=== PATIENT | male | born 1955 | race Caucasian/White ===

== ENCOUNTER 2017-03-09 17:53 | Emergency (ER) | payer BC ==
--- NOTE | 2017-03-09 18:31 | UC ---
Abdominal Pain Male HPI - HPI Summary HPI Summary: Has had off and on low left quadrant pain for the past several years, but steadier for the past 2 weeks. Bowel passage is normal, no constipation or diarrhea. Mild increase in urine frequency x months, but no dysuria and no persistent nocturia. Normal appetite. Sometimes aware of swelling in the LLQ that comes and goes. Last colonoscopy was > 10 years ago. Brother has diverticular disease. 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 - History of Current Complaint Chief Complaint: UCAbdominalPain Stated Complaint: LLQ PAIN Time Seen by Provider: 03/09/17 18:16 Hx Obtained From: Patient Onset/Duration: Gradual Onset Timing: Intermittent Episodes Lasting: - hours to days. Severity Initially: Mild Severity Currently: Moderate Pain Intensity: 4 Pain Scale Used: 0-10 Numeric Location: Other - left inguinal area Character: Aching, Sharp Aggravating Factor(s): Movement, Other - sitting. Alleviating Factor(s): Rest, Position Associated Signs And Symptoms: Positive: Negative - Risk Factors Testicular Torsion: Negative Cardiac Risk Factors: Hypertension, Elevated Lipids - Allergies/Home Medications Allergies/Adverse Reactions: Allergies Allergy/AdvReac Type Severity Reaction Status Date / Time No Known Allergies Allergy Verified 03/09/17 18:02 Home Medications: Home Medications Blood Pressure Med 1 tab DAILY 03/09/17 [History Confirmed 03/09/17] Cholesterol Med 1 tab DAILY 03/09/17 [History Confirmed 03/09/17] PMH/Surg Hx/FS Hx/Imm Hx Cardiovascular History: Hypertension - Surgical History Surgical History: None - Family History Known Family History: Positive: Cardiac Disease - father, Other - mother age 62, suspected aneurysm. - Social History Alcohol Use: Occasionally Substance Use Type: None Smoking Status (MU): Never Smoked Tobacco - Immunization History Most Recent Influenza Vaccination: never get them Review of Systems Constitutional: Negative Skin: Negative Eyes: Negative ENT: Negative Respiratory: Other - no hx of chronic cough. Cardiovascular: Other - blood pressure controlled according to PMD whom he saw recently. Good cholesterol control Gastrointestinal: Abdominal Pain - LLQ Genitourinary: Negative Motor: Negative Neurovascular: Negative Musculoskeletal: Negative Neurological: Negative Psychological: Negative Is Patient Immunocompromised?: No All Other Systems Reviewed And Are Negative: No Physical Exam Triage Information Reviewed: Yes Appearance: Well-Appearing, Pain Distress - mild Vital Signs: Initial Vital Signs Temp 98.2 F 03/09/17 18:03 Pulse 74 03/09/17 18:03 Resp 16 03/09/17 18:03 BP 158/81 03/09/17 18:03 Pulse Ox 98 03/09/17 18:03 Vital Signs Reviewed: Yes Eyes: Positive: Conjunctiva Clear ENT: Positive: Pharynx normal Neck: Positive: Supple, Nontender, No Lymphadenopathy Respiratory: Positive: Lungs clear, Normal breath sounds Cardiovascular: Positive: RRR, No Murmur Abdomen Description: Positive: No Organomegaly, Soft, Hernia @ - left inguinal hernia, tracks to scrotum. Mildly tender, no overlying erythema, cannot completely reduce.. Negative: Distended, Guarding Bowel Sounds: Positive: Present Musculoskeletal Exam: Normal Neurological Exam: Normal Psychological Exam: Normal Skin Exam: Normal Abd Pain Male Course/Dx - Course Course Of Treatment: referral to surgery for hernia repair - Differential Dx/Clinical Impression Differential Diagnosis/HQI/PQRI: Bowel Obstruction, Testicular Torsion, Other - hernia Provider Diagnoses: left inguinal hernia. Discharge - Discharge Plan Condition: Stable Disposition: HOME Patient Education Materials: Inguinal Hernia (ED) Referrals: Non Staff,Doctor [Primary Care Provider] - Roel Russell [Medical Doctor] - Additional Instructions: As discussed, you are referred to a general surgeon to consider repair of inguinal hernia. If the pain increases and you develop fever or vomiting, please go to the emergency room for evaluation. Those are signs of incarceration. There are 2 surgeons for you to call tomorrow.
== END 2017-03-09 19:12 | disposition home or self-care (01) ==
LOC: UCCORT 17:53
DX: K40.90 Unilateral inguinal hernia, without obstruction or gangrene, not specified as recurrent (principal); I10 Essential (primary) hypertension
CPT/HCPCS: 99201; G0463